=== PATIENT | male | born 1975 | race Caucasian/White ===

== ENCOUNTER 2018-03-14 08:12 | Observation (INO) | payer OTHER ==
--- NOTE | 2018-03-13 09:52 | Diagnostic Imaging Report ---
EXAMINATION: PA and lateral views of the chest. COMPARISON: None CLINICAL HISTORY: Preoperative evaluation for spine surgery DISCUSSION: Lines/tubes: None. Lungs: The lungs are well inflated and clear. No pneumonia or pulmonary edema. Pleura: There is no pleural effusion or pneumothorax. Heart and mediastinum: The cardiomediastinal silhouette is normal. Bones and soft tissues: No acute bony abnormalities. IMPRESSION: No acute cardiopulmonary abnormalities. Signed by: Dr. Carlton Brown M.D. on 03/13/2018 9:49 AM
[2018-03-13 09:58] LABS: BASOPHILS # (AUTO) 0.1 (0.0-0.1); BASOPHILS % 1.3 % (0.0-1.0); EOSINOPHILS # (AUTO) 0.5 (0.0-0.4); EOSINOPHILS % 8.5 % (0.0-6.0); HEMATOCRIT 38.4 % (38.2-49.6); HEMOGLOBIN 13.4 g/dL (14.0-18.0); LYMPHOCYTES # (AUTO) 1.6 (1.0-3.2); MEAN CORPUSCULAR HEMOGLOBIN 33.2 pg (28-32); MEAN CORPUSCULAR HGB CONC 34.9 g/dL (31-35); MONOCYTES # (AUTO) 0.8 (0.2-0.8); MONOCYTES % 12.9 % (4.4-11.3); NEUTROPHILS # (AUTO) 3.2 (2.1-6.9); NEUTROPHILS % 51.8 % (38.7-80.0); PLATELET COUNT 294 x10e3/uL (140-360); RED BLOOD COUNT 4.04 x10e6/uL (4.3-5.7)
[2018-03-13 10:15] LABS: INR 0.88; PROTHROMBIN TIME 12.8 seconds (11.9-14.5)
[2018-03-13 10:18] LABS: ANION GAP 14.3 mmol/L (8-16); BLOOD UREA NITROGEN 11 mg/dL (7-26); BUN/CREATININE RATIO 15 (6-25); CALCIUM 9.7 mg/dL (8.4-10.2); CARBON DIOXIDE 27 mmol/L (22-29); CHLORIDE 95 mmol/L (98-107); CREATININE, SERUM 0.73 mg/dL (0.72-1.25); EST GLOMERULAR FILTRATION RATE > 60 ML/MIN (60-); GLUCOSE 104 mg/dL (74-118); POTASSIUM 4.3 mmol/L (3.5-5.1); SODIUM 132 mmol/L (136-145)
[~2018-03-14] VITALS: Ht 185.4 cm; Wt 95.3 kg
[~2018-03-14 08:12] MED LIST: ACETAMINOPHEN 1000 MG/100 ML 100 ML IV ONE; BENICAR HCT 201 EACH PO; BENICAR20 MG PO; HYDROCHLOROTH12.5 M1 PO; MULTIVITAMINS1 EAC7 PO
--- OUTSIDE RECORDS SUMMARY | 2018-03-14 08:13 | XMS REPORT ---
Author Author [facility] Address Unknown Phone Unavailable Care Team Providers Care Brush Clearer Surveying Name Role Phone SHER CHILD Unavailable Unavailable Problems This patient has no known problems. Allergies, Adverse Reactions, Alerts This patient has no known allergies or adverse reactions. Medications This patient has no known medications. Results Test Description Test Time Test Comments Text Results Atomic Results Result Comments CHEST 2 VIEWS 2018-03-13 09:48:00 [place] [address] Patient Name: SAYDA CARDONA MR #: [id number] : 1975 Age/Sex: 43/M Req #: [id number] Adm Physician: Ordered by: SHER CHILD MD Report #: [id number] Location: OR Room/Bed: Procedure: [id number] DX/CHEST 2 VIEWS Exam Date: 03/13/18 Exam Time: 0915 REPORT STATUS: Signed EXAMINATION: PA and lateral views of the chest. COM PARISON: None CLINICAL HISTORY: Preoperative evaluation for spine surgery DISCUSSION: Lines/tubes: None. Lungs: The lungs are well inflated and clear. No pneumonia or pulmonary edema. Pleura: There is no pleural effusion or pneumothorax. Heart and mediastinum: The cardiomediastinal silhouette is normal. Bones and soft tissues: No acute bony abnormalities. IMPRESSION: No acute cardiopulmonary abnormalities. Signed by: Dr. Brittnee Bassett M.D. on 03/13/2018 9:49 AM Dictated By: BRITTNEE BASSETT MD 8 Transcribed By: MOON on 03/13/18948 COPY TO: SHER CHILD MD
[2018-03-14] MEDS ORDERED: CEFAZOLIN SOD 2 GM/D5W 50ML 50 ML IV ONE (08:27)
[2018-03-14] MEDS ORDERED: VENTOLIN HFA18 GM INH (09:16)
[2018-03-14] MEDS ORDERED: SYMBICORT 16010.2 GM IH (09:16)
[2018-03-14] MEDS ORDERED: ALLERGY PILL PO (09:16)
[2018-03-14] MEDS ORDERED: GELATIN SPONGE 12-7MM ONE (09:20)
[2018-03-14] MEDS ORDERED: THROMBIN FOR SOLN 5,000 UNIT VIAL ONE (09:20)
[2018-03-14] MEDS ORDERED: BUPIVACAINE 0.5%/EPI 30 ML SDV INJ ONE (09:20)
[2018-03-14] MEDS ORDERED: BACITRACIN 50,000 UNIT VIAL ONE (09:20)
[2018-03-14] MEDS: LACTATED RINGER'S 1,000 ML IV SCH ×2 (11:51→20:11)
[2018-03-14] MEDS ORDERED: ONDANSETRON HCL INJ 2MG/ML 2ML 2 MG/ML VIAL IV PRN (12:00)
[2018-03-14] MEDS ORDERED: MORPHINE SULFATE 5 MG/ML VIAL IM PRN (12:00)
[2018-03-14] MEDS ORDERED: HYDROMORPHONE 2MG/ML 2 MG/ML ML IV PRN (12:00)
[2018-03-14] MEDS ORDERED: PROMETHAZINE HCL (IM) 25 MG/ML VIAL IM PRN (12:00)
[2018-03-14] MEDS ORDERED: ACETAMINOPHEN 325 MG TAB PO PRN (12:00)
[2018-03-14] MEDS ORDERED: ALBUTEROL SULFATE HFA 8GM INHALATION AEROSOL INH PRN (12:00)
[2018-03-14] MEDS ORDERED: MAGNESIUM/ALUMINUM/SIMETHICONE 30 ML UDC PO PRN (12:00)
[2018-03-14] MEDS ORDERED: CEPACOL SORE THROAT LOZENGES PO PRN (12:00)
[2018-03-14 12:34] VITALS: BP 174/78
[2018-03-14] MEDS: CEFAZOLIN SOD 1 GM/NS 50ML 50 ML IV SCH ×2 (13:14→22:05)
[2018-03-14] MEDS: DEXAMETHASONE 4 MG TAB PO SCH ×3 (13:14→23:42)
[2018-03-14] MEDS: CARISOPRODOL 350 MG TAB PO PRN ×2 (13:48→22:06)
[2018-03-14] MEDS: OXYCODONE/ACETAMINOPHEN 5-325 1 EACH TABLET PO PRN ×2 (13:48→22:06)
--- NOTE | 2018-03-14 14:09 | Operative Report ---
DATE OF PROCEDURE: March 14, 2018 PREOPERATIVE DIAGNOSIS: Right L3-L4 foraminal disk herniation with radiculopathy, M51.16. POSTOPERATIVE DIAGNOSIS: Right L3-L4 foraminal disk herniation with radiculopathy, M51.16. PROCEDURE: Right L3-L4 lateral foraminotomy and microsurgical diskectomy, 36517. ANESTHESIA: General. INDICATIONS: Patient is a 43-year-old man who presents with a right L3-L4 foraminal and extraforaminal disk herniation symptomatic with right L3 radiculopathy. He was taken to the operating room for microsurgical decompression of the L3 nerve root. PROCEDURE: After induction of general anesthesia, the patient was placed on the operating table in the prone position over a Scottie frame. The lumbar region was prepped and draped in a sterile fashion. A preoperative x-ray was obtained. A small right paramedian incision was created. Lumbar fascia was opened to the right of midline, and dissection was carried out to expose the right-sided L3 laminae and the pars intra-articularis of L3. A 2nd x-ray confirmed correct localization below the right L3 pedicle. The operating microscope was brought in. A Aesculap expandable speculum retractor was deployed. A high-speed drill equipped with a dane bur was used to drill the lateral margin of the pars intra-articularis of L3, and the superolateral rim of the inferior articular process of L3. The lateral extension of the ligament flavum over the neural foramen was resected, and the L3 exiting nerve root was exposed under the L3 pedicle. The herniated disk material came into view below the L3 nerve root. This was mobilized with a microball probe and grasped with a micropituitary rongeur and removed. The opening into the lateral margin of the annulus of the disk was enlarged with a #11 blade. The loose contents of the lateral aspect of the disk were removed with curettes and pituitary rongeurs. Excellent decompression of the L3 nerve root had been achieved. A ball probe was passed further laterally into the extraforaminal space, and the nerve root was found to be completely free without encountering any resistance. The wound was irrigated with Bacitracin solution. Hemostasis was secured. Retractor was removed. The lumbar fascia was closed with 0 Vicryl suture. Subcutaneous layer was closed with 2-0 Vicryl sutures. The skin was closed with 3-0 Monocryl sutures in a subcuticular fashion. Steri-Strips and dressing were applied. The patient was awakened, extubated and taken to the postanesthesia care unit in stable condition. No intraoperative complications were encountered. Estimated blood loss was 10 mL. Job#: [id number]
[2018-03-14] MEDS ORDERED: PROPOFOL IV EMULSION 10 MG/ML 20 ML VIAL ONE (14:16)
[2018-03-14] MEDS ORDERED: DEXAMETHASONE SOD PHOS INJ 4 MG/ML VIAL ONE (14:16)
[2018-03-14] MEDS ORDERED: ONDANSETRON HCL INJ 2MG/ML 2ML 2 MG/ML VIAL ONE (14:16)
[2018-03-14] MEDS ORDERED: GLYCOPYRROLATE INJ 1MG/ 5 ML SYR ONE (14:16)
[2018-03-14] MEDS ORDERED: ROCURONIUM BROMIDE 10 MG/ML 5ML VIAL ONE (14:16)
[2018-03-14] MEDS ORDERED: NEOSTIGMINE 5 MG/5ML SYR ONE (14:16)
[2018-03-14] MEDS ORDERED: DESFLURANE 240 ML BTL INH ONE (14:16)
[2018-03-14] MEDS ORDERED: LIDOCAINE HCL 2% LOCAL INJ 5 ML SDV VIAL INJ ONE (14:16)
--- NOTE | 2018-03-14 14:30 | NUR ---
Patient A/O X3, even respirations unlabored on RA. Lower back dressing dry and intact at this time. Last BM this morning, bowel sounds active. Patient is wearing thigh high le hose and thigh high SCD's bilaterally. Right wrist 20 gauge IV, H/L. Patient voids in the toilet and has voided since surgery. Patient stated pain was 8/10 and was given Percocet. Call light in reach, will continue to monitor. Family at bedside.
[2018-03-14 14:50] VITALS: BP 174/78
[2018-03-14 14:55] VITALS: BP 174/78
[2018-03-14] MEDS ORDERED: FENTANYL CITRATE/PF 100MCG/2 ML INJ ONE (15:07)
[2018-03-14] MEDS ORDERED: MIDAZOLAM HCL 2 MG/2 ML VIAL ONE (15:07)
[2018-03-14 16:16] VITALS: BP 156/86
--- NOTE | 2018-03-14 19:20 | NUR ---
REPORT TAKEN FROM MORNING RN.WALKING ROUND DONE.STABLE CONDITION.
[2018-03-14 20:00] VITALS: BP 162/94
[2018-03-14] MEDS ORDERED: MORPHINE SULFATE INJ 10 MG/ML IM PRN (20:15)
[2018-03-14 20:20] VITALS: BP 162/94
[2018-03-14] MEDS ORDERED: ZOLPIDEM TARTRATE 5 MG TAB PO PRN (21:00)
[2018-03-15 00:30] VITALS: BP 164/84
--- NOTE | 2018-03-15 01:06 | NUR ---
ASSESSMENT DONE.NO RESP.DISTRESS.LYEING IN THE BED.DRESSING SITE IS DRY AND INTACT.BED LOCKED AND IN LOWEST POSITION.PHONE AND CALL LIGHT WITHIN REACH.INSTRUCTED TO CALL FOR ASISTANCE NEEDED.
[2018-03-15 04:13] VITALS: BP 151/83
[2018-03-15] MEDS: LACTATED RINGER'S 1,000 ML IV SCH (04:31)
[2018-03-15] MEDS: CARISOPRODOL 350 MG TAB PO PRN (05:28)
[2018-03-15] MEDS: OXYCODONE/ACETAMINOPHEN 5-325 1 EACH TABLET PO PRN ×2 (05:28→08:23)
[2018-03-15] MEDS: CEFAZOLIN SOD 1 GM/NS 50ML 50 ML IV SCH (05:36)
--- NOTE | 2018-03-15 05:38 | NUR ---
PAIN MEDICINE GIVEN.DRESSING CHANGED.DRY INTACT.TOLERATED WELL.
[2018-03-15] MEDS ORDERED: BUDESONIDE/FORMOTEROL 160/4.5MCG INHALER INH SCH (06:00)
[2018-03-15] MEDS: DEXAMETHASONE 4 MG TAB PO SCH (06:00)
--- NOTE | 2018-03-15 06:50 | NUR ---
REPORT GIVEN TO THE ONCOMING RN.WALKING ROUNDS DONE.STABLE CONDITION.
[2018-03-15] MEDS ORDERED: NORCO 7.5-3251 EACH PO (08:08)
[2018-03-15] MEDS ORDERED: HYDROCHLOROTHIAZIDE 25 MG TAB PO SCH (09:00)
[2018-03-15] MEDS ORDERED: MULTIVITAMINS/MINERALS TAB PO SCH (09:00)
[2018-03-15] MEDS ORDERED: OLMESARTAN 20 MG TAB PO SCH (09:00)
[2018-03-15 09:37] VITALS: BP 158/81
--- NOTE | 2018-03-15 10:07 | NUR ---
Patient alert and responsive, VSS, tolerated all meds this morning and medicated for pain. Discharge orders in place, provided with discharge documentation and prescriptions, IV line removed with cath tip in place, dressing applied. Contacts provided for f/u appt.
== END 2018-03-15 10:05 | disposition home or self-care (01) ==
LOC: OR 08:12 → PACU V 11:53 → MED/SURG 12:31
PROVIDERS: ADMIT Neurological Surgery; ATTEND Neurological Surgery
DX: M51.16 Intervertebral disc disorders with radiculopathy, lumbar region (principal); I10 Essential (primary) hypertension; J45.909 Unspecified asthma, uncomplicated; Z96.643 Presence of artificial hip joint, bilateral; Z87.891 Personal history of nicotine dependence; Z88.8 Allergy status to other drugs, medicaments and biological substances; Z01.810 Encounter for preprocedural cardiovascular examination; Z01.812 Encounter for preprocedural laboratory examination; Z01.811 Encounter for preprocedural respiratory examination
CPT/HCPCS: 36415; 63056; 71046; 72020; 80048; 85025; 85610; 85730; 86850; 86900; 88304; 93005; G0378 ×2; J0131; J0690 ×3; J1100; J1170; J2001; J2250; J2405; J2704; J3490; J8540 ×2; J2270